=== PATIENT | female | born 1985 | race Two or more races ===

== ENCOUNTER 2018-07-28 07:57 | Inpatient (IN) | payer OTHER ==
[2018-07-28] MEDS ORDERED: OXYTOCIN/NORMAL SALINE 20 UNIT/1,000 ML RTUINJ IV PRN ×2 (08:34→19:32)
[2018-07-28] MEDS ORDERED: RINGERS SOLUTION,LACTATED 300 ML IV ONE (08:34)
[2018-07-28] MEDS ORDERED: RINGERS SOLUTION,LACTATED 1,000 ML IV PRN (08:34)
[2018-07-28] MEDS ORDERED: PENICILLIN G POTASSIUM 5,000,000 UNIT in DEXTROSE 5%-WATER 100 ML IV ONE (08:35)
[2018-07-28] MEDS ORDERED: OXYTOCIN/NORMAL SALINE 20 UNIT/1,000 ML RTUINJ ONE (09:22)
[2018-07-28] MEDS ORDERED: PENICILLIN G-K 5 MILLION UNIT VIAL ONE ×3 (09:22→17:32)
[2018-07-28 09:42] LABS: ABSOLUTE BASOPHILS # (AUTO) 0.1 10^3/uL (0.0-0.2); ABSOLUTE EOSINOPHILS # (AUTO) 0.1 10^3/uL (0.0-0.6); ABSOLUTE MONOCYTES (AUTO) 0.4 10^3/uL (0.1-1.4); ABSOLUTE NEUT (AUTO) 6.5 10^3/uL (1.7-8.2); BASOPHILS % (AUTO) 0.7 % (0-2); EOSINOPHILS % (AUTO) 0.8 % (0-6); HEMOGLOBIN 11.2 g/dL (12.0-15.5); LYMPHOCYTES % (AUTO) 21.6 % (13-45); MEAN CORPUSCULAR HEMOGLOBIN 25.6 pg (27.0-33.4); MEAN CORPUSCULAR VOLUME 78 fl (80-97); MONOCYTES % (AUTO) 4.9 % (3-13); PLATELET COUNT 222 10^3/uL (150-450); RED BLOOD COUNT 4.37 10^6/uL (3.72-5.28); RED CELL DISTRIBUTION WIDTH 14.9 % (11.5-14.0); TOTAL CELLS COUNTED % (AUTO) 100 %; WHITE BLOOD COUNT 9.1 10^3/uL (4.0-10.5)
[2018-07-28 09:46] LABS: APPEARANCE,URINE SLIGHTLY-CLOUDY; BILIRUBIN,URINE NEGATIVE (NEGATIVE); COLOR,URINE YELLOW; GLUCOSE, URINE NEGATIVE (NEGATIVE); KETONES,URINE 20 mg/dL (NEGATIVE); LEUKOCYTE ESTERASE,URINE TRACE (NEGATIVE); NITRITE,URINE NEGATIVE (NEGATIVE); PROTEIN,URINE NEGATIVE (NEGATIVE); URINE SPECIFIC GRAVITY 1.015; UROBILINOGEN,URINE NEGATIVE mg/dL (<2.0)
[2018-07-28 10:01] LABS: URINE AMPHETAMINES SCREEN NEGATIVE; URINE BARBITURATES SCREEN NEGATIVE; URINE BENZODIAZEPINES SCREEN NEGATIVE; URINE COCAINE SCREEN NEGATIVE; URINE MARIJUANA (THC) SCREEN NEGATIVE; URINE METHADONE SCREEN NEGATIVE; URINE PHENCYCLIDINE SCREEN NEGATIVE
[2018-07-28] MEDS ORDERED: FENTANYL CITRATE INJ/PF 100 MCG/2 ML AMPUL ONE (12:49)
[2018-07-28] MEDS ORDERED: BUPIVACAINE HCL 0.25 % INJ/PF (2.5 MG/1 ML) 30 ML VIAL ONE (12:49)
[2018-07-28] MEDS ORDERED: EPHEDRINE SULFATE INJ 50 MG/1 ML AMPULE ONE (12:49)
[2018-07-28] MEDS ORDERED: PHENYLEPHRINE HCL INJ/PF 10 MG/1 ML SDV ONE (12:49)
[2018-07-28] MEDS ORDERED: FENTANYL/BUPIVACAINE/NS/PF 300 MCG/150 ML RTUINJ EPI ONE (12:50)
[2018-07-28] MEDS: PENICILLIN G POTASSIUM 2,500,000 UNIT in DEXTROSE 5%-WATER 50 ML IV SCH ×2 (13:47→17:43)
--- NOTE | 2018-07-28 14:43 | L&D Progress Notes ---
PROGRESS NOTES Datetime Report Generated by CPN: 07/28/2018 14:43 PROGRESS NOTE Impression: Reassuring Heart Rate Procedures: Artificial ROM; Sterile Vag Exam Plan: Continue Present Management Vital Signs : Reviewed; Within Normal Limits Comment: Epidural in place. SVE w AROM with light meconium stained fluid noted. Will continue IOL. VAGINAL EXAM Dilatation: 4 Effacement: 60 Station: -2 LAST VAGINAL EXAM-NURSING Dilitation: 5.0 Dilitation: 3.0 Effacement: 60 Effacement: 60 Station: -2 Station: -2 Contractions: RN @ bedside toco adjusted MEMBRANES Membranes: Ruptured Amniotic Fluid Color: Meconium, Light FETUS A FHR - Baseline: 150 Monitoring: External US SIGNATURE SIGNATURE: [id number] Assignment: Diane Bedolla MD Signature: with User ID: [email or web address] : with User ID: [email or web address] : I personally evaluated and examined the patient in conjunction with the MLP and agree with the assessment, treatment plan and disposition.
--- NOTE | 2018-07-28 15:55 | Admission Physical ---
Datetime Report Generated by CPN: 07/28/2018 15:54 CURRENT ADMISSION Chief Complaint: Uterine Contractions Indication for Induction: Maternal Diabetes Admit Impression : Term, Intrauterine Admit Plan: Admit to Unit; Initiate Labor Induction Protocol ALLERGIES Medication Allergies: Yes Medication Allergies: No Known Allergies (07/28/2018) Latex: No Latex Allergies OBSTETRICAL HISTORY EDC: 08/04/2018 00:00 : 2 Para: 1 Term: 1 : 0 SAB: 0 IAB: 0 Ectopic: 0 Livin Cesareans: 0 VBACs: 0 Multiple Births: 0 Gestational Diabetes: No Rh Sensitization: No Incompetent Cervix: No RAI: No Infertility: No ART Treatment: No Uterine Anomaly: No IUGR: No Hx Previous C/S: No Macrosomia: No Hx Loss/Stillborn: No PIH: Yes Hx : No Placenta Previa/Abruption: No Depression/PP Depression: No PTL/PROM: No Post Hemorrhage: No Current Procedures: Ultrasound; NST Obstetrical History Comments: G1- 37 wks viable baby boy IOL pre-eclampsia G2- Current Type II diabetes SEE RECORDS Alcohol: No Marijuana : No Cocaine: No Other Illicit Drugs: No Cigarettes: Never Smoker. 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 Surgery: No Heart Disease: No Hosp/Surgery: Yes Autoimmune Disorder: No Anesthetic Complications: No Kidney Disease: No Abnormal Pap Smear: No Neuro/Epilepsy: No Psychiatric Disorders: No Other Medical Diseases: No Hepatitis/Liver Disease: No Significant Family History: No Varicosities/Phlebitis: No Trauma/Violence : No Thyroid Dysfunction: No Medical History Comments: Hx: Cholecystectomy INFECTIOUS HISTORY Gonorrhea: No Genital Herpes: Yes Chlamydia: No Tuberculosis: No Syphilis: No Hepatitis: No HIV/AIDS Exposure: No Rash or Viral Illness: No HPV: No Infectious History Comments: HSV- Currently taking Valtrex PHYSICAL EXAM General: Normal HEENT: Normal Neurologic: Normal Thyroid: Normal Heart: Normal Lungs: Normal Breast: Normal Back: Normal Abdomen: Normal Genitourinary Exam: Normal Extremities: Normal DTRs: Normal Pelvic Type: Adequate Vital Signs: Reviewed; Within Normal Limits VAGINAL EXAM Dilatation: 4 Effacement: 60 Station: -2 MEMBRANES Membranes: Ruptured Amniotic Fluid Color: Meconium, Light FETUS A EGA: 39.0 Monitoring: External US FHR- Baseline: 140 Variability: Moderate 6-25bpm Accelerations: 15X15 Decelerations: None FHR Category: Category I Estimated Weight (gm): 3600 Presentation: Vertex PLANS FOR LABOR AND DELIVERY Labor and Delivery: None Pain Management: None Feeding Preference: Breast Benefit of Breast Feed Discussed: Yes Circumcision: N/A INFORMED CONSENT Signature: with User ID: [email or web address] : I personally evaluated and examined the patient in conjunction with the MLP and agree with the assessment, treatment plan and disposition.
--- NOTE | 2018-07-28 16:50 | L&D Progress Notes ---
PROGRESS NOTES Datetime Report Generated by CPN: 07/28/2018 16:50 PROGRESS NOTE Impression Other: questionable progress Procedures: Intrauterine Pressure Catheter; Scalp Electrode; Sterile Vag Exam Plan: Continue Present Management Vital Signs : Reviewed Comment: Unable to monitor uc's and fhr well with external monitors. Questionable late decelerations. SVE no change-vertex still high. IUPC and FSE applied without difficulty. Will assess uc strength and assess cervical twisting frame changer next 1-2 hrs. VAGINAL EXAM Dilatation: 4 Effacement: 70 Station: -2 MEMBRANES Membranes: Ruptured Amniotic Fluid Color: Meconium, Light FETUS A FHR - Baseline: 150 FETUS C SIGNATURE: [id number] SIGNATURE: ,[id number];,[id number] Assignment: Diane Bedolla MD Signature: with User ID: [email or web address] : with User ID: [email or web address] : I personally evaluated and examined the patient in conjunction with the MLP and agree with the assessment, treatment plan and disposition.
[2018-07-28] MEDS ORDERED: MISOPROSTOL 0.2 MG TABLET ONE (18:20)
[2018-07-28] MEDS ORDERED: LIDOCAINE 1% INJ-PF (10 MG/ML) 30 ML SDV ONE (18:20)
[2018-07-28] MEDS ORDERED: OXYTOCIN 10 UNIT/ML VIAL ONE (18:20)
[2018-07-28] MEDS ORDERED: NA PHOS,M-B/NA PHOS,DI-BA (ADULT) 133 ML ENEMA PR PRN (19:32)
[2018-07-28] MEDS ORDERED: DIPH/PERTUSS(ACELL)/TETANUS VAC/PF 0.5 ML SYR (>=10YO) IM PRN (19:32)
[2018-07-28] MEDS ORDERED: ACETAMINOPHEN WITH CODEINE #3 TABLET PO PRN ×2 (19:32)
[2018-07-28] MEDS ORDERED: MAGNESIUM HYDROXIDE SUSP 30 ML UDCUP PO PRN (19:32)
[2018-07-28] MEDS ORDERED: DIBUCAINE 1% OINTMENT 28 GM TP PRN (19:32)
[2018-07-28] MEDS ORDERED: MEASLES,MUMPS&RUBELLA VACC/PF 0.5 ML VIAL SUBCUT PRN (19:32)
[2018-07-28] MEDS ORDERED: BENZOCAINE/MENTHOL AEROSOL SPRAY 56 ML TOP PRN (19:32)
[2018-07-28] MEDS ORDERED: ACETAMINOPHEN 650 MG SUPP.RECT PR PRN (19:32)
[2018-07-28] MEDS ORDERED: PROMETHAZINE HCL 25 MG SUPP.RECT PR PRN (19:32)
[2018-07-28] MEDS ORDERED: PSEUDOEPHEDRINE HCL 30 MG TABLET PO PRN (19:32)
[2018-07-28] MEDS ORDERED: ZOLPIDEM TARTRATE 5 MG TABLET PO PRN (19:32)
[2018-07-28] MEDS ORDERED: PROMETHAZINE HCL INJ 25 MG/1 ML VIAL IV PRN (19:32)
[2018-07-28] MEDS ORDERED: PROMETHAZINE HCL 25 MG TABLET PO PRN (19:32)
[2018-07-28] MEDS ORDERED: DIPHENHYDRAMINE HCL 25 MG CAPSULE PO PRN (19:32)
[2018-07-28] MEDS ORDERED: GLYCERIN/WITCH HAZEL LEAF 1 EACH MED..PAD TP PRN (19:32)
[2018-07-28] MEDS ORDERED: (PENDING PHARMACY ID) (Metformin Hcl [Metformin Hcl] 1,000 MG) PO SCH (19:45)
[2018-07-28] MEDS: METFORMIN HCL 500 MG TABLET PO SCH (20:59)
--- NOTE | 2018-07-28 21:02 | Warning Signs in Babies ---
VOD Warning Signs Datetime Report Generated by [facility]: 07/28/2018 21:01 VOD#608 -Warning Signs in Babies: Needs to be viewed. (07/28/2018 07:25:Georgia Carrillo RN)
[2018-07-28] MEDS ORDERED: IBUPROFEN 800 MG TABLET ONE (21:26)
[2018-07-28] MEDS: IBUPROFEN 800 MG TABLET PO SCH (21:27)
--- NOTE | 2018-07-28 21:59 | Delivery Summary ---
Del Sum A-C Datetime Report Generated by CPN: 07/28/2018 21:58 DELIVERY PERSONNEL DELIVERY PERSONNEL: [id number] Delivery Doctor:: Vaibhav Porras MD Labor and Delivery Nurse:: Briana Page RNsafety and health consultant Nurse:: Georgia Carrillo RN Senior Estimator:: ANNIKA Kruse Ediphone Operator/EXTENSION WORK INSTRUCTOR: Ronna Mc[facility] Ediphone Operator/EXTENSION WORK INSTRUCTOR: Eulalia Carmichael, ST Additional Personnel: : Megan, Patience, SN UNCW MATERNAL INFORMATION Delivery Anesthesia: Epidural Medications After Delivery: Pitocin Drip 20 Units/1000ml NSS Maternal Complications: Other Complication Details: type 2 diabetes on insulin during LABOR SUMMARY EDC: 08/04/2018 00:00 No. Babies in Womb: 1 Attempted: No Labor Anesthesia: Epidural LABOR INFORMATION Reason for Induction: Maternal Diabetes Onset of Labor: 07/28/2018 14:23 Oxytocin: Induction Group B Beta Strep: Positive Antibiotics # of Doses: 3 Antibiotics Time of Last Dose: 1739 Name of Antibiotic Given: Penicillin Steroids Given: None Reason Steroids Not Administered: Not Applicable MEMBRANES Membranes Rupture Method: Artificial Rupture of Membranes: 07/28/2018 14:23 Length of Rupture (hr): 4.95 Amniotic Fluid Color: Light Meconium Amniotic Fluid Amount: Large Amniotic Fluid Odor: Normal STAGES OF LABOR Stage 3 hr: 0 Stage 3 min: 4 Total Time in Labor hr: 5 Total Time in Labor min: 1 VAGINAL DELIVERY Episiotomy: None Laceration #1: Perineal Laceration Extension #1: First Degree Laceration #2: Periurethral Laceration Extension #2: N/A Laceration Repair: Yes Laceration Repair Note: repaired with 3-0 chromic in usual fashion Sponge Count Correct: Yes; Vaginal Sweep Performed Sharps Count Correct: Yes CSECTION DELIVERY Primary Indication: N/A Secondary Indication: N/A CSection Incision: N/A BABY A INFORMATION Delivery Date/Time: 07/28/2018 19:20 Method of Delivery: Vaginal Born in Route : No : N/A Forceps: N/A Vacuum Extraction: N/A Shoulder Dystocia : No PRESENTATION/POSITION BABY A Presentation: Cephalic Cephalic Presentation: Vertex Vertex Position: Right Occipital Anterior Breech Presentation: N/A PLACENTA INFORMATION BABY A Placenta Delivery Time : 07/28/2018 19:24 Placenta Method of Delivery: Spontaneous Placenta Status: Delivered SCORES BABY A Heart Rate 1 min: >100 bpm Resp Effort 1 min: Good Cry Reflex Irritability 1 min: Cough or Sneeze or Pulls Away Muscle Tone 1 min: Some Flexion of Extremities Color 1 min: Blue/Pale Resuscitation Effort 1 min: Tactile Stimulation SCORE 1 MIN: 7 Heart Rate 5 min: >100 bpm Resp Effort 5 min: Good Cry Reflex Irritability 5 min: Cough or Sneeze or Pulls Away Muscle Tone 5 min: Active Motion Color 5 min: Body [place], Extremities Blue Resuscitation Effort 5 min: Tactile Stimulation SCORE 5 MIN: 9 INFANT INFORMATION BABY A Gestational Age at Delivery: 39.0 Gestational Status: Full Term- 39- 40.6 Weeks Infant Outcome : Liveborn Infant Condition : Stable Infant Sex: Female IDENTIFICATION BABY A Infant Verification Date/Time: 07/28/2018 19:35 ID Band Number: [id number] Mother's Name Verified: Yes Infant RN Verifying : Akshat Shaw CHELY Additional Verifying Personnel: Shane Carrillo RN WEIGHT/LENGTH BABY A Infant Birthweight (gm): 3570 Infant Weight (lb): 7 Weight (oz): 14 Infant Length (in): 20.25 Infant Length (cm): 51.44 CORD INFORMATION BABY A No. Cord Vessels: 3 Nuchal Cord : N/A Cord Blood Taken: Yes-For Eval (Mom's Blood Type - or O+) Suction: Mouth ASSESSMENT BABY A Infant Complications: None Physical Findings at Delivery: Caput Succedaneum; Puncture Wound from Scalp Electrode Respirations: Appears Normal Skin to Skin: Yes Stock Wetter/ALS Called : No Infant Care By: Rn Samia Transferred To: Remains with Mother BABY B INFORMATION : N/A SIGNATURES Signature: with User ID: [email or web address] : I personally evaluated and examined the patient in conjunction with the MLP and agree with the assessment, treatment plan and disposition.
[2018-07-29] MEDS: FAMOTIDINE 20 MG TABLET PO SCH ×3 (01:13→21:41)
[2018-07-29] MEDS: PENICILLIN G POTASSIUM 2,500,000 UNIT in DEXTROSE 5%-WATER 50 ML IV SCH ×2 (01:23→01:24)
[2018-07-29] MEDS: IBUPROFEN 800 MG TABLET PO SCH ×3 (05:50→21:40)
[2018-07-29] MEDS: METFORMIN HCL 500 MG TABLET PO SCH ×2 (07:28→17:00)
[2018-07-29 07:29] LABS: HEMATOCRIT 32.9 % (36.0-47.0); HEMOGLOBIN 10.9 g/dL (12.0-15.5); MEAN CORPUSCULAR HEMOGLOBIN 25.7 pg (27.0-33.4); MEAN CORPUSCULAR HGB CONC 33.2 g/dL (32.0-36.0); MEAN CORPUSCULAR VOLUME 77 fl (80-97); PLATELET COUNT 207 10^3/uL (150-450); RED BLOOD COUNT 4.26 10^6/uL (3.72-5.28); WHITE BLOOD COUNT 11.6 10^3/uL (4.0-10.5)
--- NOTE | 2018-07-29 09:39 | PDOC PROGRESS REPORT ---
Subjective-OB Progress Note for:: 07/29/18 Physical Exam (OB) Vital Signs: Temp Pulse Resp BP Pulse Ox 98.7 F 103 H 16 130/80 H 97 07/28/18 22:32 07/28/18 22:32 07/28/18 22:32 07/28/18 22:32 07/28/18 22:32 Intake & Output 07/28/18 07/29/18 07/30/18 06:59 06:59 06:59 Intake Total 50 Balance 50 Weight 113 kg - PIH/Pre-Eclampsia Clonus: Negative Headache: Absent Epigastric Pain: No Visual Changes: No - Lochia Lochia Amount: Scant < 10 ml Lochia Color: Rubra/Red - Abdomen Description: Soft, Round Hernia Present: No Bowel Sounds: Normoactive Flatus Presence: Present Stool: Yes Fundal Description: Firm Fundal Height: u/u - u/2 Objective-Diagnostic Laboratory: 07/29/18 07:08 07/28/18 08:53 07/28/18 07/28/18 07/28/18 08:06 08:53 08:53 WBC 9.1 RBC 4.37 Hgb 11.2 L Hct 34.0 L MCV 78 L MCH 25.6 L MCHC 33.0 RDW 14.9 H Plt Count 222 Seg Neutrophils % 72.0 Lymphocytes % 21.6 Monocytes % 4.9 Eosinophils % 0.8 Basophils % 0.7 Absolute Neutrophils 6.5 Absolute Lymphocytes 2.0 Absolute Monocytes 0.4 Absolute Eosinophils 0.1 Absolute Basophils 0.1 Glucose Urine Color YELLOW Urine Appearance SLIGHTLY-CLOUDY Urine pH 6.0 Ur Specific [place] 1.015 Urine Protein NEGATIVE Urine Glucose (UA) NEGATIVE Urine Ketones 20 H Urine Blood NEGATIVE Urine Nitrite NEGATIVE Ur Leukocyte Esterase TRACE H Blood Type A NEGATIVE Antibody Screen NEGATIVE 07/28/18 07/29/18 07/29/18 08:53 07:08 07:08 WBC 11.6 H RBC 4.26 Hgb 10.9 L Hct 32.9 L MCV 77 L MCH 25.7 L MCHC 33.2 RDW 15.0 H Plt Count 207 Seg Neutrophils % Lymphocytes % Monocytes % Eosinophils % Basophils % Absolute Neutrophils Absolute Lymphocytes Absolute Monocytes Absolute Eosinophils Absolute Basophils Glucose 94 Urine Color Urine Appearance Urine pH Ur Specific [place] Urine Protein Urine Glucose (UA) Urine Ketones Urine Blood Urine Nitrite Ur Leukocyte Esterase Blood Type A NEGATIVE Antibody Screen
[2018-07-29] MEDS ORDERED: METFORMIN HCL 500 MG TABLET PO SCH (10:00)
[2018-07-29] MEDS ORDERED: (PENDING PHARMACY ID) (Valacyclovir Hcl [Valtrex] 1,000 MG) PO SCH (10:00)
[2018-07-29] MEDS: VALACYCLOVIR HCL 500 MG TABLET PO SCH (10:32)
[2018-07-29] MEDS: FERROUS SULFATE 325 MG TABLET PO SCH ×2 (10:32→17:00)
[2018-07-29] MEDS: SENNOSIDES/DOCUSATE 8.6-50 MG 1 EACH TABLET PO SCH (10:32)
[2018-07-29] MEDS: DOCUSATE SODIUM 100 MG CAPSULE PO SCH ×2 (10:35→17:00)
[2018-07-29] MEDS: PRENATAL VITAMIN W DHA CAPSULE PO SCH (10:35)
[2018-07-30] MEDS: IBUPROFEN 800 MG TABLET PO SCH (05:01)
[2018-07-30] MEDS: METFORMIN HCL 500 MG TABLET PO SCH (07:27)
--- NOTE | 2018-07-30 09:22 | PDOC PROGRESS REPORT ---
Subjective-OB Progress Note for:: 07/30/18 Subjective: Ready to go home. Physical Exam (OB) Vital Signs: Temp Pulse Resp BP Pulse Ox 97.7 F 81 18 127/81 H 98 07/30/18 08:00 07/30/18 08:00 07/30/18 08:00 07/30/18 08:00 07/30/18 08:00 Intake & Output 07/29/18 07/30/18 07/31/18 06:59 06:59 06:59 Intake Total 50 300 Output Total 240 Balance 50 60 Weight 113 kg - PIH/Pre-Eclampsia Clonus: Negative Headache: Absent Epigastric Pain: No Visual Changes: No - Lochia Lochia Amount: Scant < 10 ml Lochia Color: Rubra/Red - Abdomen Description: Soft, Round Hernia Present: No Bowel Sounds: Normoactive Flatus Presence: Present Stool: Yes Fundal Description: Firm Fundal Height: u/u - u/2 Objective-Diagnostic Laboratory: 07/29/18 07:08 07/28/18 08:53 07/29/18 07:08 Blood Type A NEGATIVE
--- NOTE | 2018-07-30 09:29 | PDOC DISCHARGE SUMMARY ---
Final Diagnosis Discharge Date: 07/30/18 - Final Diagnosis (1) Delivery normal Is this a current diagnosis for this admission?: Yes (2) GDM (gestational diabetes mellitus) Is this a current diagnosis for this admission?: Yes (3) Positive GBS test Is this a current diagnosis for this admission?: Yes (4) Is this a current diagnosis for this admission?: Yes Discharge Data - Discharge Medication Home Medications: Insulin Lispro [Humalog Kwikpen] 12 unit SQ PCSUPPER 07/28/18 Metformin HCl 1,000 mg PO BID 07/28/18 Vits96/Iron Fum/Folic [ Tablet] 1 each PO DAILY 07/28/18 Valacyclovir HCl [Valtrex] 1,000 mg PO DAILY 07/28/18 Gestational Age: 39.0 wks Reason(s) for Admission: Onset of Labor Procedures: Ultrasound Intrapartum Procedure(s): Spontaneous Vaginal Delivery Complication(s): Laceration-Perineal Laceration-Degree: 1st - Data Baby 1 Female at 1 minute: 7 at 5 minutes: 9 Weight: 3.572 kg Home with Mother: Yes Complications: No - Diagnosis Test Laboratory: Temp Pulse Resp BP Pulse Ox 97.7 F 81 18 127/81 H 98 07/30/18 08:00 07/30/18 08:00 07/30/18 08:00 07/30/18 08:00 07/30/18 08:00 07/28/18 07/28/18 07/29/18 08:06 08:53 07:08 RBC 4.37 4.26 Hgb 11.2 L 10.9 L Hct 34.0 L 32.9 L Urine Opiates Screen NEGATIVE - Discharge information/Instructions Discharge Activity: Activity As Tolerated, Balance Activity w/Rest, Non- Ambulatory Child, Pelvic Rest, Slowly Increase Activity, No tub bath Discharge Diet: Regular Disposition: HOME, SELF-CARE Follow up with: [facility] in: 4, Weeks
[2018-07-30] MEDS: FERROUS SULFATE 325 MG TABLET PO SCH (10:33)
[2018-07-30] MEDS: FAMOTIDINE 20 MG TABLET PO SCH (10:33)
[2018-07-30] MEDS: VALACYCLOVIR HCL 500 MG TABLET PO SCH (10:33)
[2018-07-30] MEDS: PRENATAL VITAMIN W DHA CAPSULE PO SCH (10:34)
[2018-07-30] MEDS: SENNOSIDES/DOCUSATE 8.6-50 MG 1 EACH TABLET PO SCH (10:34)
[2018-07-30] MEDS: DOCUSATE SODIUM 100 MG CAPSULE PO SCH (10:34)
[2018-07-30 13:26] VITALS: BP 142/79
== END 2018-07-30 12:45 | disposition home or self-care (01) | DRG 806 ==
LOC: LR 07:57 → 2S 22:00
PROVIDERS: ADMIT Obstetrics & Gynecology; ATTEND Obstetrics & Gynecology
PROC: 10E0XZZ Delivery of Products of Conception, External Approach (ICD-10-PCS; principal; 2018-07-28)
PROC: 0HQ9XZZ Repair Perineum Skin, External Approach (ICD-10-PCS; 2018-07-28)
PROC: 0UQMXZZ Repair Vulva, External Approach (ICD-10-PCS; 2018-07-28)
PROC: 10H07YZ Insertion of Other Device into Products of Conception, Via Natural or Artificial Opening (ICD-10-PCS; 2018-07-28)
PROC: 4A1H7CZ Monitoring of Products of Conception, Cardiac Rate, Via Natural or Artificial Opening (ICD-10-PCS; 2018-07-28)
DX: O24.424 Gestational diabetes mellitus in childbirth, insulin controlled (principal); O98.32 Other infections with a predominantly sexual mode of transmission complicating childbirth; Z37.0 Single live birth; O71.82 Other specified trauma to perineum and vulva; O77.0 Labor and delivery complicated by meconium in amniotic fluid; A60.00 Herpesviral infection of urogenital system, unspecified; O70.0 First degree perineal laceration during delivery; O99.824 Streptococcus B carrier state complicating childbirth; Z3A.39 39 weeks gestation of pregnancy; Z79.899 Other long term (current) drug therapy
CPT/HCPCS: 36415; 59025; 80307; 81005; 82947; 82962; 85025; 85027; 85461; 86592; 86850; 86900; 86901; J2370; J2540; J2590; J2790; J3010; J3490